=== PATIENT | female | born 1975 | race African-American/Black ===

== ENCOUNTER 2017-10-19 15:28 | Emergency (ER) | payer SELFPAY ==
[~2017-10-19] VITALS: Ht 180.3 cm; Wt 90.7 kg
[2017-10-19] MEDS ORDERED: diphenhydrAMINE 50 MG/ML VIAL IVP ONE (16:15)
[2017-10-19] MEDS ORDERED: KETOROLAC 30 MG/ML VIAL. IV ONE (16:15)
[2017-10-19] MEDS ORDERED: IV NORMAL SALINE 1000ML BAG 1,000 ML IV ONE (16:15)
[2017-10-19] MEDS ORDERED: INSULIN REGULAR 100 UNIT/ML 3ML VIAL. IV ONE (16:15)
[2017-10-19 16:39] LABS: BASO % 0 % (0-3); EOS # 0.1 x10^3/uL (0.0-0.7); EOS % 1 % (0-3); HEMATOCRIT 29.3 % (36.0-47.0); LYMPH % 16 % (24-48); MEAN CORPUSCULAR HEMOGLOBIN 28 pg (25-35); MEAN CORPUSCULAR HGB CONC 34 g/dL (31-37); MEAN CORPUSCULAR VOLUME 82 fL (79-100); MONO # 0.3 x10^3/uL (0.0-1.1); MONO % 5 % (0-9); NEUT # 4.8 x10^3uL (1.8-7.7); NEUT % 77 % (31-73); PLATELET COUNT 347 x10^3/uL (140-400); RED BLOOD COUNT 3.59 x10^6/uL (3.50-5.40); RED CELL DISTRIBUTION WIDTH 12.6 % (11.5-14.5); WHITE BLOOD COUNT 6.2 x10^3/uL (4.0-11.0)
[2017-10-19 16:49] LABS: BILIRUBIN,URINE NEGATIVE (NEG); CLARITY,URINE CLOUDY; COLOR,URINE YELLOW; NITRITE,URINE NEGATIVE (NEG); PH,URINE 5.5; PROTEIN,URINE >=300 mg/dL (NEG-TRACE); UROBILINOGEN,URINE 0.2 mg/dL (0.2 mg/dL)
[2017-10-19 16:51] LABS: CREATININE 1.3 mg/dL (0.6-1.0); GFR 54.6; POTASSIUM 3.8 mmol/L (3.5-5.1)
[2017-10-19 16:56] LABS: ALBUMIN 2.9 g/dL (3.4-5.0); ALBUMIN/GLOBULIN RATIO 0.7 (1.0-1.7); TOTAL BILIRUBIN 0.2 mg/dL (0.2-1.0); TOTAL PROTEIN 7.2 g/dL (6.4-8.2)
[2017-10-19 17:00] LABS: RBC,URINE OCC /HPF (0-2)
[2017-10-19 17:01] LABS: BACTERIA,URINE MANY /HPF (0-FEW); SQUAMOUS EPITHELIAL CELL,UR MANY /LPF; WBC,URINE 20-40 /HPF (0-4)
[2017-10-19 17:30] VITALS: BP 106/78
--- NOTE | 2017-10-19 17:50 | RAD ---
CT HEAD AND MAXILLOFACIAL WO Date: 10/19/2017 5:13 PM Clinical Indication: headache x 2 weeks, dental swelling Comparison: None. Technique: 5 mm axial tomographic images were obtained of the head without contrast. These were viewed on brain and bone windows. Head Findings: The brain parenchyma is normal in attenuation. No intra- or extra-axial mass or fluid collection. No acute hemorrhage. The ventricles are normal in size, shape, and morphology. The nguyen-white matter junction is normal. The basilar cisterns are patent. No aggressive osseous lesion or fracture. CT HEAD IMPRESSION: No acute intracranial process. CT MAXILLOFACIAL WITHOUT CONTRAST History: headache x 2 weeks, dental swelling Technique: Axial helical images of the face were obtained without contrast. Axial and coronal reconstruction was performed. Face Findings: Apical lucencies involving numerous bilateral mandibular and maxillary teeth. Dental caries. Absent dentition. No discrete fluid collection to indicate odontogenic abscess. Moderate right and trace left maxillary sinus mucosal thickening. The orbits are normal. The globes are intact. The nasal septum is mostly midline. The ostiomeatal complexes are narrow but patent. CT FACE IMPRESSION: 1. Apical lucencies involving numerous bilateral mandibular and maxillary teeth. Dental caries. Absent dentition. No discrete fluid collection to indicate odontogenic abscess. 2. Moderate right and trace left maxillary sinus disease. PQRS Compliance Statement: One or more of the following individualized dose reduction techniques were utilized for this examination: 1. Automated exposure control 2. Adjustment of the mA and/or kV according to patient size 3. Use of iterative reconstruction technique Electronically signed by: Jose Rosa MD (10/19/2017 5:47 PM) [facility]
[2017-10-19] MEDS ORDERED: AMOX500C PO (18:17)
--- NOTE | 2017-10-19 18:21 | PHYS DOC ---
Past Medical History Past Medical History: Diabetes-Type II, Hypertension Past Surgical History: No Surgical History Alcohol Use: None Drug Use: None Adult General Chief Complaint Chief Complaint: HEADACHE HPI HPI Patient is a 42 year old female who presents with headache and dental pain. The patient states that she has had a long going battling with bad teeth. She has seen a dentist before but has multiple teeth that are currently bad that she knows needs to be treated. She thinks that the headache is related to this condition. She is a type II diabetic but has not taken any medication for this condition over the past year. She states that she does have a primary care she just was noncompliant and didn't want take the medication. Review of Systems Review of Systems Constitutional: Denies fever or chills [] Eyes: Denies change in visual acuity, redness, or eye pain [] HENT: Denies nasal congestion or sore throat [] Respiratory: Denies cough or shortness of breath [] Cardiovascular: No additional information not addressed in HPI [] GI: Denies abdominal pain, nausea, vomiting, bloody stools or diarrhea [] : Frequency Musculoskeletal: Denies back pain or joint pain [] Integument: Denies rash or skin lesions [] Neurologic: See history of present illness Endocrine: Denies polyuria or polydipsia [] All other systems were reviewed and found to be within normal limits, except as documented in this note. Current Medications Current Medications Current Medications Medications (Trade) Dose Ordered Sig/[place] Start Time Stop Time Status Last Admin Dose Admin Diphenhydramine HCl (Benadryl) 50 mg 1X ONCE 10/19/17 16:15 10/19/17 16:16 DC 10/19/17 16:29 50 MG Insulin Human Regular (HumuLIN R VIAL) 10 unit 1X ONCE 10/19/17 16:15 10/19/17 16:16 DC 10/19/17 16:30 10 UNIT Ketorolac Tromethamine (Toradol 30mg Vial) 30 mg 1X ONCE 10/19/17 16:15 10/19/17 16:16 DC 10/19/17 16:29 30 MG Sodium Chloride 1,000 ml @ 1,000 mls/hr 1X ONCE 10/19/17 16:15 10/19/17 17:14 DC 10/19/17 16:24 1,000 MLS/HR Allergies Allergies Allergies Coded Allergies Type Severity Reaction Last Updated Verified No Known Drug Allergies 10/19/17 No Physical Exam Physical Exam Constitutional: Well developed, well nourished, no acute distress, non-toxic appearance. [] HENT: Normocephalic, atraumatic, bilateral external ears normal, oropharynx moist, no oral exudates, multiple missing teeth with the remaining teeth having dental caries Eyes: PERRLA, EOMI, conjunctiva normal, no discharge. [] Neck: Normal range of motion, no tenderness, supple, no stridor. [] Cardiovascular:Heart rate regular rhythm, no murmur [] Lungs & Thorax: Bilateral breath sounds clear to auscultation [] Abdomen: Bowel sounds normal, soft, no tenderness, no masses, no pulsatile masses. [] Skin: Warm, dry, no erythema, no rash. [] Back: No tenderness, no CVA tenderness. [] Extremities: No tenderness, no cyanosis, no clubbing, ROM intact, no edema. [] Neurologic: Alert and oriented X 3, normal motor function, normal sensory function, no focal deficits noted, cranial nerves II through XII are grossly intact. [] Psychologic: Affect normal, judgement normal, mood normal. [] Current Patient Data Vital Signs Vital Signs Date Time Temp Pulse Resp B/P (MAP) Pulse Ox O2 Delivery O2 Flow Rate FiO2 10/19/17 15:41 99.8 110 18 104/65 (78) 99 Room Air 99.8 Lab Values Laboratory Tests Test 10/19/17 16:02 10/19/17 16:15 10/19/17 16:35 10/19/17 16:43 Glucose (Fingerstick) 365 mg/dL (70-99) H White Blood Count 6.2 x10^3/uL (4.0-11.0) Red Blood Count 3.59 x10^6/uL (3.50-5.40) Hemoglobin 10.0 g/dL (12.0-15.5) L Hematocrit 29.3 % (36.0-47.0) L Mean Corpuscular Volume 82 fL (79-100) Mean Corpuscular Hemoglobin 28 pg (25-35) Mean Corpuscular Hemoglobin Concent 34 g/dL (31-37) Red Cell Distribution Width 12.6 % (11.5-14.5) Platelet Count 347 x10^3/uL (140-400) Neutrophils (%) (Auto) 77 % (31-73) H Lymphocytes (%) (Auto) 16 % (24-48) L Monocytes (%) (Auto) 5 % (0-9) Eosinophils (%) (Auto) 1 % (0-3) Basophils (%) (Auto) 0 % (0-3) Neutrophils # (Auto) 4.8 x10^3uL (1.8-7.7) Lymphocytes # (Auto) 1.0 x10^3/uL (1.0-4.8) Monocytes # (Auto) 0.3 x10^3/uL (0.0-1.1) Eosinophils # (Auto) 0.1 x10^3/uL (0.0-0.7) Basophils # (Auto) 0.0 x10^3/uL (0.0-0.2) Sodium Level 132 mmol/L (136-145) L Potassium Level 3.8 mmol/L (3.5-5.1) Chloride Level 99 mmol/L (98-107) Carbon Dioxide Level 29 mmol/L (21-32) Anion Gap 4 (6-14) L Blood Urea Nitrogen 15 mg/dL (7-20) Creatinine 1.3 mg/dL (0.6-1.0) H Estimated GFR (Cockcroft-Gault) 54.6 BUN/Creatinine Ratio 12 (6-20) Glucose Level 385 mg/dL (70-99) H Calcium Level 9.0 mg/dL (8.5-10.1) Total Bilirubin 0.2 mg/dL (0.2-1.0) Aspartate Amino Transferase (AST) 14 U/L (15-37) L Alanine Aminotransferase (ALT) 20 U/L (14-59) Alkaline Phosphatase 73 U/L (46-116) Total Protein 7.2 g/dL (6.4-8.2) Albumin 2.9 g/dL (3.4-5.0) L Albumin/Globulin Ratio 0.7 (1.0-1.7) L Urine Collection Type Void Urine Color Yellow Urine Clarity Cloudy Urine pH 5.5 Urine Specific [place] 1.025 Urine Protein >=300 mg/dL (NEG-TRACE) Urine Glucose (UA) >=1000 mg/dL (NEG) Urine Ketones (Stick) Negative mg/dL (NEG) Urine Blood Trace (NEG) Urine Nitrite Negative (NEG) Urine Bilirubin Negative (NEG) Urine Urobilinogen Dipstick 0.2 mg/dL (0.2 mg/dL) Urine Leukocyte Esterase Small (NEG) Urine RBC Occ /HPF (0-2) Urine WBC 20-40 /HPF (0-4) Urine Squamous Epithelial Cells Many /LPF Urine Bacteria Many /HPF (0-FEW) Urine Mucus Mod /LPF POC Urine HCG, Qualitative Hcg negative (Negative) Laboratory Tests 10/19/17 16:15 Laboratory Tests 10/19/17 16:15 EKG EKG [] Radiology/Procedures Radiology/Procedures []PATIENT: DIEGO MOJICA LACCOUNT: [id number]#: [id number] : 1975 LOCATION: ER AGE: 42 SEX: F EXAM STATUS: REG ER ORD. PHYSICIAN: JEREMIAS GARIBAY APRN REASON: headache x 2 weeks, dental swelling PROCEDURE: CT HEAD AND MAXILLOFACIAL WO CT HEAD AND MAXILLOFACIAL WO Date: 10/19/2017 5:13 PM Clinical Indication: headache x 2 weeks, dental swelling Comparison: None. Technique: 5 mm axial tomographic images were obtained of the head without contrast. These were viewed on brain and bone windows. Head Findings: The brain parenchyma is normal in attenuation. No intra- or extra-axial mass or fluid collection. No acute hemorrhage. The ventricles are normal in size, shape, and morphology. The nguyen-white matter junction is normal. The basilar cisterns are patent. No aggressive osseous lesion or fracture. CT HEAD IMPRESSION: No acute intracranial process. CT MAXILLOFACIAL WITHOUT CONTRAST History: headache x 2 weeks, dental swelling Technique: Axial helical images of the face were obtained without contrast. Axial and coronal reconstruction was performed. Face Findings: Apical lucencies involving numerous bilateral mandibular and maxillary teeth. Dental caries. Absent dentition. No discrete fluid collection to indicate odontogenic abscess. Moderate right and trace left maxillary sinus mucosal thickening. The orbits are normal. The globes are intact. The nasal septum is mostly midline. The ostiomeatal complexes are narrow but patent. CT FACE IMPRESSION: 1. Apical lucencies involving numerous bilateral mandibular and maxillary teeth. Dental caries. Absent dentition. No discrete fluid collection to indicate odontogenic abscess. 2. Moderate right and trace left maxillary sinus disease. PQRS Compliance Statement: One or more of the following individualized dose reduction techniques were utilized for this examination: 1. Automated exposure control 2. Adjustment of the mA and/or kV according to patient size 3. Use of iterative reconstruction technique Electronically signed by: Jose Rosa MD (10/19/2017 5:47 PM) [facility] DICTATED and SIGNED BY: JOSE ROSA MD DATE: 10/19/17 1736 Course & Med Decision Making Course & Med Decision Making Pertinent Labs and Imaging studies reviewed. (See chart for details) [] The patient is in agreement that she needs to see a dental clinic. She was given a list of clinics to seek follow-up care. The patient and I had a very long talk about her diabetes and lack of treatment and management. I did explain to her about her creatinine level and that this is a marker showing that her kidneys are taking damage at this point. She states that she understands and is planning to follow-up with her primary at for further evaluation and treatment of her condition. Dragon Disclaimer Dragon Disclaimer This electronic medical record was generated, in whole or in part, using a voice recognition dictation system. Departure Departure Impression: Primary Impression: Dental infection Additional Impressions: Headache Diabetes Disposition: 01 HOME, SELF-CARE Condition: STABLE Referrals: NO PCP (PCP) Patient Instructions: Dental Caries, General Headache Without Cause, Easy-to- Read Additional Instructions: Take the medication as prescribed. You may use ibuprofen or Tylenol for pain. Follow-up with your dentist for further evaluation of your dental infections. Follow-up with your primary care for evaluation of your diabetes and treatment. If worsening please return to the emergency department. Scripts Amoxicillin (AMOXICILLIN) 500 Mg Capsule 2 CAP PO BID, #40 CAP Prov: JEREMIAS GARIBAY APRN 10/19/17 Problem Qualifiers JEREMIAS GARIBAY APRN Oct 19, 2017 18:21
== END 2017-10-19 18:37 | disposition home or self-care (01) ==
LOC: ER 15:28
DX: K04.7 Periapical abscess without sinus (principal); R51 Headache; E11.9 Type 2 diabetes mellitus without complications; I10 Essential (primary) hypertension
CPT/HCPCS: 36415; 70450; 70486; 80053; 81001; 81025; 82962; 85025; 87086; 96374; 96375; 99285; J1200; J1815; J1885; J7030